=== PATIENT | female | born 1985 | race Caucasian/White ===

== ENCOUNTER 2020-10-13 11:35 | Emergency (ER) | payer OTHER ==
[~2020-10-13 11:35] MED LIST: AMPHETAMINE SAL20 MG PO; BUSPIRONE HCL15 MG PO; FLEXERIL5 MG PO; METFORMIN HCL500 MG PO; PERCOCET 5-3251 EACH PO; PRILOSEC20 MG PO; TRILEPTAL150 MG PO; ZOFRAN ODT4 MG SL; ZOLOFT100 MG PO; ZOVIRAX800 MG PO
[2020-10-13 12:56] LABS: BASOPHIL 0.3 % (0-2); EOSINOPHIL 3.9 % (0-5); HCT 40.7 % (37.0-47.0); HGB 13.7 g/dl (12.5-16.0); LYMPHOCYTE 26.9 % (15-48); MCH 31.1 pg (25.0-31.0); MCHC 33.7 g/dL (32.0-36.0); MCV 92.3 fL (78.0-100.0); MPV 10.5 fL (6.0-9.5); NEUTROPHIL 60.6 % (41-80); NRBC 0; PLT 227 K/uL (150-400); RBC 4.41 M/uL (4.20-5.40); RDW 12.2 % (11.5-14.0); WBC 11.9 K/uL (4.0-10.5)
[2020-10-13 13:22] LABS: BUN/CREAT RATIO (CALC) 15.6 RATIO; CREATININE 0.64 mg/dL (0.51-0.95); POTASSIUM 3.6 mmol/L (3.5-5.1)
[2020-10-13] MEDS ORDERED: MEDROL 4MG DOSEP4 MG PO (13:44)
== END 2020-10-13 14:20 | disposition home or self-care (01) ==
LOC: FER 11:35
PROVIDERS: Emergency Medicine
DX: L50.9 Urticaria, unspecified (principal); R19.7 Diarrhea, unspecified; Z87.891 Personal history of nicotine dependence; Z86.16 Personal history of COVID-19
CPT/HCPCS: 36415; 80048; 85025; 99283; J1200; J2930

== ENCOUNTER 2021-02-23 19:46 | Emergency (ER) | payer OTHER ==
[~2021-02-23 19:46] MED LIST changes: +MEDROL 4MG DOSEP4 MG PO
[2021-02-23 20:22] LABS: BASOPHIL 0.8 % (0-2); EOSINOPHIL 2.8 % (0-5); HCT 42.8 % (37.0-47.0); LYMPHOCYTE 36.4 % (15-48); MCH 31.6 pg (25.0-31.0); MCV 90.3 fL (78.0-100.0); MONOCYTE 5.8 % (0-12); MPV 10.6 fL (6.0-9.5); NEUTROPHIL 53.9 % (41-80); NRBC 0; PLT 294 K/uL (150-400); RBC 4.74 M/uL (4.20-5.40); RDW 12.4 % (11.5-14.0); WBC 10.1 K/uL (4.0-10.5)
[2021-02-23 20:38] LABS: ALBUMIN 3.9 g/dL (3.4-5.0); BUN/CREAT RATIO (CALC) 15.3 RATIO; CREATININE 0.72 mg/dL (0.51-0.95); GLOBULIN (CALCULATION) 3.7 g/dL; POTASSIUM 3.5 mmol/L (3.5-5.1); TOTAL PROTEIN 7.6 g/dL (6.4-8.2)
[2021-02-23 20:45] LABS: BILIRUBIN NEGATIVE (NEGATIVE); BLOOD 2+ Ery/uL (NEGATIVE); CLARITY CLEAR (CLEAR); COLOR YELLOW (YELLOW); GLUCOSE (U) NORMAL (NORMAL); LEUKOCYTES NEGATIVE Leu/uL (NEGATIVE); NITRITE NEGATIVE (NEGATIVE); PROTEIN NEGATIVE (NEGATIVE); UROBILINOGEN 0.2 mg/dL (0.2-1.0)
[2021-02-23 20:53] LABS: AMORPHOUS URATES CRYSTALS MODERATE
== END 2021-02-24 03:15 | disposition home or self-care (01) ==
LOC: FER 19:46
PROVIDERS: Emergency Medicine
DX: R20.2 Paresthesia of skin (principal)
CPT/HCPCS: 36415; 71045; 80053; 81001; 83690; 84484; 85025; 93005; J1885; J2060; J2270; J2405; Q9967

== ENCOUNTER 2021-05-12 21:49 | Emergency (ER) | payer OTHER ==
[2021-05-13] MEDS ORDERED: ONDANSETRON ODT4 MG SL (01:59)
[2021-05-13] MEDS ORDERED: FIORICET1 EACH PO (01:59)
[2021-05-13] MEDS ORDERED: MAXALT MLT10 MG PO (01:59)
== END 2021-05-13 02:12 | disposition home or self-care (01) ==
LOC: FER 21:49
DX: G43.909 Migraine, unspecified, not intractable, without status migrainosus (principal); I10 Essential (primary) hypertension; F17.200 Nicotine dependence, unspecified, uncomplicated; F31.9 Bipolar disorder, unspecified; Z79.3 Long term (current) use of hormonal contraceptives; Z79.84 Long term (current) use of oral hypoglycemic drugs; Z79.899 Other long term (current) drug therapy
CPT/HCPCS: J0780; J1100; J1170; J1200; J1885; J2405; J3490; J7030

== ENCOUNTER 2021-06-27 09:28 | Emergency (ER) | payer OTHER ==
[~2021-06-27 09:28] MED LIST changes: +FIORICET1 EACH PO; +MAXALT MLT10 MG PO; +ONDANSETRON ODT4 MG SL
[2021-06-27] MEDS ORDERED: BACTRIM DS TAB1 EACH PO (10:27)
[2021-06-27] MEDS ORDERED: NORCO 5-325 TA1 EACH PO (10:27)
== END 2021-06-27 11:01 | disposition home or self-care (01) ==
LOC: FER 09:28
DX: S61.216A Laceration without foreign body of right little finger without damage to nail, initial encounter (principal); S61.227A Laceration with foreign body of left little finger without damage to nail, initial encounter; I10 Essential (primary) hypertension; F17.210 Nicotine dependence, cigarettes, uncomplicated; W26.8XXA Contact with other sharp object(s), not elsewhere classified, initial encounter; Y92.009 Unspecified place in unspecified non-institutional (private) residence as the place of occurrence of the external cause
CPT/HCPCS: 99282